=== PATIENT | female | born 1990 | race Caucasian/White ===

== ENCOUNTER 2025-05-15 09:11 | Emergency (ER) | payer BC, SELFPAY ==
[2025-05-15 09:21] VITALS: BP 139/83; PULSE 94; RESP 16; TEMP 36.6; O2SAT 100
--- NOTE | 2025-05-15 09:45 | ED.GENADULT ---
HPI - General Adult General Chief complaint: Skin/Abscess/Foreign Body Stated complaint: RASH Source: patient Mode of arrival: ambulatory Limitations: no limitations History of Present Illness HPI narrative: Pt is a 35 y/o female presenting with c/o rash. Reports pruritic rash, generalized. Rash began on Tuesday. Reports prior to onset of rash, she did sleep in a hotel room and used hotel-provided body hygiene products. No new medications, foods. No similar rash among household members. No new pets. 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 No additional complaints. Related Data Allergies Allergy/AdvReac Type Severity Reaction Status Date / Time No Known Allergies Allergy Verified 05/15/25 09:43 Review of Systems Review of Systems: CONSTITUTIONAL: Denies body aches, fever, chills, or sweats. EYES: Denies visual changes, redness, or discharge. ENT: Denies rhinorrhea, congestion, sore throat, or otalgia. CARDIOVASCULAR: Denies chest pain, palpitations, or edema. RESPIRATORY: Denies cough or dyspnea. GASTROINTESTINAL: Denies abdominal pain, nausea, vomiting, or diarrhea. GENITOURINARY: Denies dysuria or hematuria. SKIN: Reports rash, itching, denies wounds. MUSCULOSKELETAL: Denies back pain, joint pain, or myalgia. NEUROLOGIC: Denies headache, numbness, tingling, or weakness. PSYCH: Denies depression or anxiety. All systems reviewed & are unremarkable except as noted in HPI and below Exam Narrative: GENERAL: Well-appearing, well-nourished, and in no acute distress. HEAD: Normocephalic, atraumatic. EYES: EOMI. No redness or drainage. Conjunctivae normal. ENT: Mucous membranes pink and moist. NECK: Normal AROM. Supple. CHEST: No respiratory distress. HEART: Regular rate EXTREMITIES: Normal range of motion. No edema. SKIN: Warm, dry. Erythematous, maculopapular eruption noted to extremities, torso. No evidence of secondary bacterial skin infection. Capillary refill normal. Normal skin turgor. NEURO: No focal deficits. Alert and oriented x3. Gait steady. PSYCH: Normal affect. No signs of depression or anxiety. Course Course Emergency Course: Discussed elevated blood pressure readings with patient and advised daily BP monitoring and f/u with PCP if persisting. Level of Care: Express Care Visit Vital Signs Vital signs: Vital Signs Temperature 98 F 05/15/25 09:21 Pulse Rate 94 05/15/25 09:21 Respiratory Rate 16 05/15/25 09:21 Blood Pressure 139/83 05/15/25 09:21 Pulse Oximetry 100 05/15/25 09:21 Temperature 98 F 05/15/25 09:21 Pulse Rate 94 05/15/25 09:21 Respiratory Rate 16 05/15/25 09:21 Blood Pressure 139/83 05/15/25 09:21 Pulse Oximetry 100 05/15/25 09:21 Medical Decision Making Vital Signs Vital Signs: Vital Signs Temperature 98 F 05/15/25 09:21 Pulse Rate 94 05/15/25 09:21 Respiratory Rate 16 05/15/25 09:21 Blood Pressure 139/83 05/15/25 09:21 Pulse Oximetry 100 05/15/25 09:21 Temperature 98 F 05/15/25 09:21 Pulse Rate 94 05/15/25 09:21 Respiratory Rate 16 05/15/25 09:21 Blood Pressure 139/83 05/15/25 09:21 Pulse Oximetry 100 05/15/25 09:21 Discharge Plan Discharge Clinical Impression: Rash, Elevated blood pressure reading in office without diagnosis of hypertension Patient Disposition: Home Condition: Stable Instructions: Acute Rash (ED) Additional Instructions: you can take [id number] antihistamine per the package instructions. Go straight to ER should your symptoms become worse or should any new symptoms develop Patient Language: Amharic Prescriptions: New prednisone 20 mg tablet 20 mg PO DAILY Qty: 18 0RF Rx Instructions: Take 60 mg x 3 days then 40 mg x 3 days then 20 mg x 3 days Follow-up/Referrals: PHYSICIAN,[employer] BRANCH MANAGER [Primary Care Provider, Internal Medicine] - 05/16/25 Time of Disposition: 10:02
== END 2025-05-15 10:05 | disposition home or self-care (01) ==
PROVIDERS: Emergency Provider Registered Nurse
DX: R21 Rash and other nonspecific skin eruption (principal); R03.0 Elevated blood-pressure reading, without diagnosis of hypertension
CPT/HCPCS: 99203; G0463